=== PATIENT | female | born 1990 | race Caucasian/White ===

== ENCOUNTER 2023-12-17 02:03 | Emergency (ER) | payer MEDICAID ==
[~2023-12-17] VITALS: Ht 165.1 cm; Wt 78.0 kg
[2023-12-17 02:05] VITALS: O2SAT 99
[2023-12-17 02:40] VITALS: TEMP 98.6
[2023-12-17 03:14] LABS: CARBON DIOXIDE 27 mEq/L (21-32); CHLORIDE 100 mEq/L (98-107); SODIUM 135 mEq/L (136-145)
[2023-12-17 03:15] LABS: CALCIUM 9.2 mg/dL (8.7-10.4)
[2023-12-17 03:19] LABS: CREATININE 0.7 mg/dL (0.6-1.0)
[2023-12-17 03:20] LABS: GLUCOSE 126 mg/dL (70-105); UREA NITROGEN BLOOD 8 mg/dL (9-23)
[2023-12-17 03:22] LABS: ALANINE AMINOTRANSFERASE 46 IU/L (10-49); ALBUMIN 4.6 g/dL (3.2-4.8); ASPARTATE AMINOTRANSFERASE 39 IU/L (<34); BILIRUBIN DIRECT 0.3 mg/dL (<=3.0); BILIRUBIN TOTAL 0.9 mg/dL (0.1-1.0); PROTEIN TOTAL 7.7 g/dL (6.0-8.3)
[2023-12-17 03:26] LABS: BASOPHILS % 0.4 % (0.0-2.0); HEMATOCRIT. 43.1 % (36.0-48.0); HEMOGLOBIN. 14.3 g/dL (12.0-16.0); LYMPHOCYTES % 12.6 % (20.0-50.0); MEAN CORPUSCULAR HEMOGLOBIN 29.1 pg (28.0-32.0); MEAN CORPUSCULAR HGB CONC 33.1 g/dL (31.0-37.0); MEAN CORPUSCULAR VOLUME 87.8 fL (81.0-99.0); MEAN PLATELET VOLUME 8.2 fl (7.4-10.4); MONOCYTES % 4.6 % (2.0-8.0); NEUTROPHILS % 82.4 % (40.0-76.0); PLATELET 351 x1000/uL (130-400); RED CELL DISTRIBUTION WIDTH 14.8 % (11.6-14.6); WHITE BLOOD COUNT 14.2 x1000/uL (4.5-11.0)
[2023-12-17 03:28] LABS: TROPONIN I HIGH SENSITIVITY < 4 ng/L (3.0-34)
[2023-12-17 03:33] LABS: INR 0.9; PROTHROMBIN TIME 10.4 sec (9.6-11.0)
[2023-12-17] MEDS: FAMOTIDINE 20MG/2ML VIAL IV ONE (03:36)
[2023-12-17] MEDS: KETOROLAC 30MG/ML VIAL IV ONE (03:36)
[2023-12-17] MEDS: ONDANSETRON HCL 4MG/2ML INJ IV ONE (03:37)
[2023-12-17] MEDS: SODIUM CHLORIDE 0.9% 1,000 ML IV ONE (03:38)
[2023-12-17] MEDS: SODIUM CHL 0.9% + KCL 20MEQ/L 1,000 ML IV SCH (04:01)
[2023-12-17] MEDS: MORPHINE SULFATE 4 MG/ML INJ (FOR IV/IM USE) IM ONE (04:24)
[2023-12-17] MEDS ORDERED: FAMO-135 MT (05:51)
[2023-12-17] MEDS ORDERED: ONDA4TAB11 PO (05:51)
[2023-12-17 06:00] VITALS: BP 130/68; PULSE 80; RESP 18
[2023-12-17] MEDS: IOHEXOL-300 100 ML BOTTLE ONE (06:00)
== END 2023-12-17 06:25 | disposition home or self-care (01) ==
LOC: ER 02:26
DX: K29.60 Other gastritis without bleeding (principal); K80.20 Calculus of gallbladder without cholecystitis without obstruction; Z90.49 Acquired absence of other specified parts of digestive tract; F19.90 Other psychoactive substance use, unspecified, uncomplicated
CPT/HCPCS: 99285; 74177; 96365; 96375; 80076; 80048; 83690; 85025; 85610; 84484; 36415; 96372; Q9967; J3490; J1885; J2405; J2270; J3480; J7030